=== PATIENT | female | born 1995 | race Caucasian/White ===

== ENCOUNTER → 2017-03-19 | Outpatient (CLI) | payer MEDICARE, MEDICAID ==
[2017-03-19 14:35] LABS: HEMOGLOBIN 14.3 g/dL (12.2-16.2); LYMPH # 1.5 K/mm3 (0.7-4.5); LYMPH % 16.6 % (10-50.0)
[2017-03-19 15:52] LABS: BUN 11 mg/dL (7-18)
[2017-03-19 18:01] LABS: GFR (ESTIMATED) 198 ML/MIN (59-)
== END ==
LOC: CARL-LAB 11:21
PROVIDERS: Pediatrics
DX: N18.2 Chronic kidney disease, stage 2 (mild) (principal)